=== PATIENT | female | born 1965 | race African-American/Black ===

== ENCOUNTER 2017-09-22 10:10 | Emergency (ER) | payer OTHER ==
[~2017-09-22] VITALS: Ht 165.1 cm; Wt 63.5 kg
[~2017-09-22 10:10] MED LIST: BIOTIN1000 MCG PO; CALCIUM + D 6001 TAB PO; CLARINEX 5 MG TA5 MG PO; METOPROLOL SUC100 MG PO; MULTIVITAMIN1 TAB PO; NASONEX0.05 MG/Ac NAS; PROTONIX 40MG T40 MG PO; SENNA8.6 M3 PO; TOBRAMYCIN 5 ML5 ML OD; TOPROL XL100 M1 PO; VITAB121000 PO; VOLTAREN 5 ML5 ML OPH
[2017-09-22 11:00] LABS: ABSOLUTE BASOPHIL COUNT 0 /CUMM (0.0-0.2); ABSOLUTE EOSINOPHIL COUNT 0 /CUMM (0.0-0.7); ABSOLUTE GRANULOCYTE CT 2.1 /CUMM (1.4-6.5); ABSOLUTE LYMPH COUNT 1.2 /CUMM (1.2-3.4); ABSOLUTE MONOCYTE COUNT 0.5 /CUMM (0.10-0.60); BASOPHIL % 0.6 % (0.0-2.0); EOSINOPHIL % 0.2 % (0-5); GRANULOCYTE % 55.2 % (42.2-75.2); HEMATOCRIT 38.8 % (37-47); MEAN CORPUSCULAR HGB 26.1 PG (27.0-31.0); MEAN CORPUSCULAR HGB CONC 32.4 G/DL (33.0-37.0); MEAN CORPUSCULAR VOLUME 80.5 FL (81.0-99.0); MEAN PLATELET VOLUME 7.3 FL (7.4-10.4); PLATELET COUNT 241 /CUMM (130-400); RBC DISTRIBUTION WIDTH 14.2 % (11.5-14.5); RED BLOOD CELL CT 4.82 /CUMM (4.20-5.40); WHITE BLOOD CELL COUNT 3.8 /CUMM (4.8-10.8)
--- NOTE | 2017-09-22 11:16 | ED INFLUENZA/URI COMPLAINT ---
History of Present Illness General Chief Complaint: Upper Respiratory Sx/Fever Stated Complaint: SENT BY URGENT CARE FOR UPPER RESP INFECTION Source: patient Exam Limitations: no limitations Vital Signs & Intake/Output Vital Signs & Intake/Output Vital Signs Date Time Temp Pulse Resp B/P B/P Pulse O2 O2 Flow FiO2 Mean Ox Delivery Rate 09/22 1511 98.8 76 18 113/64 96 Room Air 09/22 1303 98.4 75 18 130/75 98 Room Air Room Air 09/22 1038 100.7 81 16 127/88 96 Room Air Allergies Coded Allergies: adhesive tape (OK WITH PAPER TAPE 04/23/16) Reconcile Medications Acetaminophen 500 MG TABLET 2 TAB PO DAILY PAIN/FEVER (Reported) Albuterol Sulfate (Proair Hfa) 90 MCG HFA.AER.AD 2 PUF INH Q4-6 PRN PRN Cough Azithromycin (Zithromax) 250 MG TABLET 1 DP PO AD Bronchitis Take 1 tab daily for the next 3 days Benzonatate (Tessalon Perle) 100 MG CAPSULE 1 CAP PO BID PRN Cough Codeine Phosphate/Guaifenesi (Cheratussin AC Syrup) (Unknown Strength) LIQUID 5 ML PO QPM COUGH (Reported) Cyanocobalamin (Vitamin B-12) 1,000 MCG TABLET 1 TAB PO DAILY SUPPLEMENT ( Reported) Guaifenesin (Children's Chest Congestion) 100 MG/5 ML LIQUID 10 ML PO Q6H PRN COUGH (Reported) Metoprolol Succ XL (Toprol Xl) 50 MG TAB 1 TAB PO DAILY HEART/BP (Reported) Multiple Vitamin (Multivitamins) 1 EACH TABLET 1 TAB PO DAILY SUPPLEMENT ( Reported) Temazepam (Restoril) 30 MG CAPSULE 1 CAP PO QPM SLEEP (Reported) Triage Note: PT TO ER C/O UPPER RESP INFECTION, PT WAS TO WALKIN AND THE SCRIPTS GIVEN ARE NOT WORKING.. PT STATES THAT HER FEVER WILL NOT GO AWAY. PT IS WHEEZING, COUGHING, WEAK. ONSET SUNDAY PT STATES SHE HAS PAIN EVERYWHERE BUT MOSTLY IN HER CHEST 01/18 Triage Nurses Notes Reviewed? yes HPI: 52 yo F PMH HTN, GERD, SBO presenting with URI Sx, Chest pain. URI Sx for the last 7-8 days with cough, congestion, rhinorrhea, "dry" itchy throat. Associated non-productive cough. Associated systemic Sx with tactile fevers, chills, myalgias, arthralgias, malaise. Chest pain for the last 4-5 days, left upper chest, worse with coughing or deep breathing, non-exertional. Denies shortness of breath, palpitations, abdominal pain, nausea, vomiting, diarrhea, constipation, bloody stools, urinary sx, vaginal Sx, headache, neck pain, or focal neurologic symptoms. The patient has history of hypertension, no prior history of hyperlipidemia or diabetes, quit smoking one year ago, [id number] smoking history, family history of early coronary artery disease and [place] with [place] patient's mother in her 50s. Patient has previously been evaluated by insurance consultant, reports a negative stress test 2-3 years ago. 30 pack year smoking history, no prior Dx of COPD or asthma. Evaluated at walk-in clinic 4 days ago, prescribed Robitussin, no improvement in symptoms. Past History Travel History Traveled to [place] past 21 day No Medical History Any Pertinent Medical History? see below for history Neurological: NONE EENT: NONE Cardiovascular: hypertension Respiratory: NONE Gastrointestinal: GERD, SBO Hepatic: NONE Renal: NONE Musculoskeletal: NONE Psychiatric: NONE Endocrine: NONE Blood Disorders: NONE Cancer(s): NONE INDUSTRIAL ENGINEERING MANAGER/Reproductive: NONE History of MRSA: No History of VRE: No History of CDIFF: No Surgical History Surgical History: appendectomy, hernia repair-incisional, tubal ligation, small bowel resection Psychosocial History Who do you live with Patient/Self Services at Home None What is your primary language Bhutanese Tobacco Use: Quit >30 days ago Family History Hx Contributory? Yes Review of Systems Review of Systems Constitutional: Denies: see HPI. EENTM: Denies: see HPI. Respiratory: Denies: see HPI. Cardiovascular: Denies: see HPI. GI: Reports: no symptoms. Genitourinary: Reports: no symptoms. Musculoskeletal: Reports: see HPI. Skin: Reports: no symptoms. Neurological/Psychological: Reports: no symptoms. Hematologic/Endocrine: Reports: no symptoms. Immunologic/Allergic: Reports: no symptoms. Physical Exam Physical Exam General Appearance: well developed/nourished, no apparent distress, alert, awake Ears, Nose, Throat: moist mucous membrane, nasal congestion Neck: normal inspection, full range of motion, no midline tenderness Respiratory: rhonchi, wheezing Cardiovascular: regular rate/rhythm, normal peripheral pulses, bradycardia Gastrointestinal: normal bowel sounds, soft, non-tender Extremities: no edema Comments: Pulmonary: Normal work of breathing, intermittent harsh cough, mild scattered rhonchi with mild intermittnet wheezes Core Measures Sepsis Present: No Sepsis Focused Exam Completed? No Progress Differential Diagnosis: influenza, meningitis, neutropenia, otitis, pneumonia, pharyngitis, sinusitis Plan of Care: Orders Procedure Date/time Status TROPONIN LEVEL 09/22 1350 Complete RAPID VIRAL INFLUENZA A 09/22 1034 Complete THROAT CULTURE W/QUICK STREP 09/22 1034 Active TROPONIN LEVEL 09/22 1034 Complete MAGNESIUM 09/22 1034 Complete D-DIMER 09/22 1034 Complete CBC WITHOUT DIFFERENTIAL 09/22 1034 Complete BASIC METABOLIC PANEL 09/22 1034 Complete EKG 09/22 1034 Active Laboratory Tests 09/22/17 1358: Troponin I < 0.01 09/22/17 1050: Anion Gap 9, Estimated GFR > 60, BUN/Creatinine Ratio 14.3, Glucose 101 H, Calcium 8.7, Magnesium 1.5 L, Troponin I < 0.01, D-Dimer High Sensitivty < 200, CBC w Diff NO MAN DIFF REQ, RBC 4.82, MCV 80.5 L, MCH 26.1 L, MCHC 32.4 L, RDW 14.2, MPV 7.3 L, Gran % 55.2, Lymphocytes % 30.9, Monocytes % 13.1 H, Eosinophils % 0.2, Basophils % 0.6, Absolute Granulocytes 2.1, Absolute Lymphocytes 1.2, Absolute Monocytes 0.5, Absolute Eosinophils 0, Absolute Basophils 0 Microbiology 09/22 1040 NASOPHARYN: Influenza Virus A & B Rapid Smear - COMP Physician MDM: 52 yo F PMH HTN, GERD, SBO presenting with URI Sx, Chest pain. Febrile to 100.7, otherwise VSS, pulmonary exam as above. DDX: Viral URI, bronchitis, influenza, pneumonia, COPD exacerbation, pneumothorax, less likely ACS, low concern for PE, low concern for aortic pathology or esophageal catastrophe. ECG sinus rhythm, non-ischemic. Troponins negative x 2 spaced 3 hrs apart. CBC with mild leukopenia at 3.8, remainder of cell lines WNL, patient informed of results, ?viral supression, will f/u with PMD for repeat CBC in 1 week. D-Dimer sent from triage negative. CMP unremarkable, magnesium low at 1.5, repleted PO. CXR without focal consolidation or airspace disease. Given albuterol neb with improvement in mild wheezes and subjectiv respiratory status per patient. On re-examination patient resting comfortably, normal WOB, VSS, well appearing, symptomatically improved. Given smoking history will treat probable bronchitis with azithromycin, 1st dose in ED. Discharged with return precuations, albuterol MDI and tessalon perles for cough, plan for close f/u with PMD for further cardiac risk stratification. Initial ED EKG: NSR Departure Departure Disposition: HOME OR SELF CARE Condition: Stable Clinical Impression Primary Impression: Bronchitis Referrals: Lucy Mendoza MD (PCP/Family) Additional Instructions: Take tylenol or ibuprofen for fevers and muscle aches. Try Tessalon pearles as needed for cough. Use albuterol as needed every 4-6 hrs for cough. Take azithromycin for the next 3 days. Follow up with your primary care physician in the next 2-3 days for further evaluation and possible stress testing. Return to the ED for any new, worsening, or concerning symptoms. Departure Forms: Customer Survey General Discharge Information Prescriptions: Current Visit Scripts Albuterol Sulfate (Proair Hfa) 2 PUF INH Q4-6 PRN PRN Cough #1 INHAL Benzonatate (Tessalon Perle) 1 CAP PO BID PRN #20 CAP Azithromycin (Zithromax) 1 DP PO AD #3 TAB Take 1 tab daily for the next 3 days
[2017-09-22] MEDS ORDERED: TOPROL XL50 M1 PO (12:05)
[2017-09-22] MEDS ORDERED: ACETAMINOPHEN500 M4 PO (12:06)
[2017-09-22] MEDS ORDERED: VITAMIN B-121000 MC3 PO (12:06)
[2017-09-22] MEDS ORDERED: MULTIVITAMINS1 EAC9 PO (12:06)
[2017-09-22] MEDS ORDERED: RESTORIL30 M1 PO (12:06)
[2017-09-22] MEDS ORDERED: CHERATUSSIN AC118 M1 PO (12:08)
[2017-09-22] MEDS ORDERED: CHILDREN'S100 MG/56 PO (12:08)
--- NOTE | 2017-09-22 12:41 | RADIOLOGY REPORT ---
EXAMINATION: XR CHEST CLINICAL INFORMATION: Chest pain. COMPARISON: Chest done on 04/23/2016. TECHNIQUE: 2 views of the chest were obtained. FINDINGS: Both lungs are symmetrically expanded, and appear clear. The cardiomediastinal silhouette is within normal limit. There is no pleural effusion or pneumothorax present. The visualized upper abdomen is unremarkable. No significant change since 04/23/2016. IMPRESSION: No acute cardiopulmonary disease.
[2017-09-22 15:11] VITALS: BP 113/64
[2017-09-22] MEDS ORDERED: TESSALON PERLE100 M1 PO (15:32)
[2017-09-22] MEDS ORDERED: ZITHROMAX250 M2 PO (15:32)
[2017-09-22] MEDS ORDERED: PROAIR HFA8.5 GM INH (15:32)
== END 2017-09-22 15:50 ==
LOC: ERH 10:10
PROVIDERS: Emergency Medicine
DX: J40 Bronchitis, not specified as acute or chronic (principal); R07.9 Chest pain, unspecified; Z87.891 Personal history of nicotine dependence
CPT/HCPCS: 1263; 71046; 87804; 87804-59; 93005; 93010; J0456